=== PATIENT | female | born 1955 | race Caucasian/White ===

== ENCOUNTER → 2017-07-31 | Outpatient (CLI) | payer OTHER ==
--- NOTE | 2017-07-31 13:39 | RADIOLOGY REPORT PS360 ---
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 No acute fracture or dislocation is evident. No lytic or blastic change or significant degenerative change. Normal alignment. IMPRESSION: No change from 05/22/2014 with no acute finding
== END ==
LOC: RAD 11:36
DX: M79.672 Pain in left foot (principal)